=== PATIENT | male | born 1940 | race African-American/Black ===

== ENCOUNTER 2020-04-12 05:19 | Inpatient (IN) | payer OTHER ==
[~2020-04-12] VITALS: Ht 172.7 cm; Wt 74.8 kg
[2020-04-12] MEDS ORDERED: ACETAMINOPHEN 500MG TABLET PO ONE (05:30)
[2020-04-12] MEDS ORDERED: SODIUM CHLORIDE 0.9% 1,000 ML IV ONE (05:30)
[2020-04-12 05:52] LABS: BASOPHILS % 0.2 % (0.0-2.0); EOSINOPHILS % 0.1 % (0.0-5.0); HEMATOCRIT. 35.7 % (42.0-52.0); MEAN CORPUSCULAR HEMOGLOBIN 31.6 pg (28.0-32.0); MEAN CORPUSCULAR VOLUME 94.2 fL (80.0-94.0); MEAN PLATELET VOLUME 7.6 fl (7.4-10.4); MONOCYTES % 3.3 % (2.0-8.0); NEUTROPHILS % 86.4 % (40.0-76.0); PLATELET 194 x1000/uL (130-400); RED BLOOD CELL COUNT 3.79 mill/uL (4.7-6.1); RED CELL DISTRIBUTION WIDTH 14.6 % (11.6-14.6)
[2020-04-12 06:01] LABS: INR 1.1; PROTHROMBIN TIME 11.4 sec (9.6-11.0)
[2020-04-12 06:03] LABS: CHLORIDE 104 mEq/L (98-107)
[2020-04-12] MEDS ORDERED: PIPERACILLIN/TAZ 3.375G PREMIX 50 ML IV ONE (06:45)
[2020-04-12] MEDS ORDERED: VANCOMYCIN 1 G PREMIX 200 ML IV ONE (06:45)
[2020-04-12] MEDS ORDERED: MORPHINE SULFATE 4 MG/ML CPJ (NOT FOR IM USE) IV ONE (06:45)
[2020-04-12] MEDS ORDERED: DEXT 5%/0.45% NACL 1000ML 1,000 ML IV SCH (09:45)
[2020-04-12] MEDS ORDERED: MORPHINE SULFATE 2 MG/ML CPJ (NOT FOR IM USE) IV PRN (09:45)
[2020-04-12] MEDS ORDERED: CLONIDINE 0.1MG TABLET PO PRN (09:45)
[2020-04-12] MEDS ORDERED: ENOXAPARIN 40MG/0.4ML SYR SUBCUT SCH (09:45)
[2020-04-12] MEDS ORDERED: NITROGLYCERIN 0.4MG TABLET SL SL PRN (09:45)
[2020-04-12] MEDS ORDERED: DIPHENHYDRAMINE 50MG/ML VIAL IV PRN (09:45)
[2020-04-12] MEDS ORDERED: ZOLPIDEM TARTRATE 5MG TABLET PO PRN (09:45)
[2020-04-12] MEDS ORDERED: SODIUM CHLORIDE 0.9% 1000ML BAG (SEPSIS BOLUS) IV ONE (09:45)
[2020-04-12] MEDS ORDERED: PIPERACILLIN/TAZ 3.375G PREMIX 50 ML IV SCH (09:45)
[2020-04-12] MEDS ORDERED: MAGNESIUM/ALUMINUM HYDROXIDE/SIMETHICONE 30ML UDC PO PRN (09:45)
[2020-04-12] MEDS ORDERED: DEXTROSE 50% WATER 50ML SYRINGE IV PRN (09:45)
[2020-04-12] MEDS ORDERED: TRAMADOL 50MG TABLET PO PRN (09:45)
[2020-04-12] MEDS ORDERED: ACETAMINOPHEN 325MG TABLET PO PRN ×2 (09:45)
[2020-04-12] MEDS ORDERED: GUAIFENESIN 200MG/10ML SUGAR FREE UDC PO PRN (09:45)
[2020-04-12] MEDS ORDERED: IPRATROPIUM/ALBUTEROL 0.5-3(2.5)MG/3ML NEB NEB PRN (09:45)
[2020-04-12] MEDS ORDERED: ONDANSETRON HCL 4MG/2ML INJ IV PRN (09:45)
[2020-04-12] MEDS ORDERED: DOCUSATE SODIUM 100MG CAPSULE PO PRN (09:45)
[2020-04-12 10:52] LABS: FOLIC ACID (FOLATE) SERUM 17.7 ng/mL (>5.38)
[2020-04-12] MEDS: ENOXAPARIN 30MG/0.3ML SYR SUBCUT SCH (11:30)
[2020-04-12] MEDS: INSULIN LISPRO 100 UNITS/ML SUBCUT SCH ×3 (13:20→21:00)
[2020-04-12] MEDS: BLOOD SUGAR DIAGNOSTIC STRIP TEST SCH ×3 (13:27→21:00)
[2020-04-12] MEDS: PIPERACILLIN/TAZOBACTAM 2.25 G in DEXTROSE 5% WATER 50 ML IV SCH (14:00)
[2020-04-12 16:26] LABS: CREATINE KINASE 541 IU/L (39-308); CREATINE KINASE MB FRACTION 1.2 ng/mL (0.5-3.6)
[2020-04-12 16:40] VITALS: BP 126/63
[2020-04-12] MEDS: CYANOCOBALAMIN 1000MCG/ML VIAL IM SCH (18:05)
[2020-04-12] MEDS ORDERED: LOVA10TA54 MT (18:31)
[2020-04-12] MEDS ORDERED: LISI2.5T47 MT (18:31)
[2020-04-12] MEDS ORDERED: LISI40TA4 MT (19:05)
[2020-04-12] MEDS ORDERED: LOVA40TA73 MT (19:05)
[2020-04-12] MEDS ORDERED: LEVO100T9 MT (19:05)
[2020-04-12 20:00] VITALS: BP 112/65
[2020-04-13] VITALS: BP 103/63
[2020-04-13 01:33] LABS: CREATINE KINASE 581 IU/L (39-308); CREATINE KINASE MB FRACTION 1.2 ng/mL (0.5-3.6)
[2020-04-13] MEDS: PIPERACILLIN/TAZOBACTAM 2.25 G in DEXTROSE 5% WATER 50 ML IV SCH ×3 (01:50→06:06)
[2020-04-13 04:00] VITALS: BP 113/66
[2020-04-13] MEDS ORDERED: BUPIVACAINE HCL/PF 0.5% (5MG/ML) 10ML ONE (06:51)
[2020-04-13] MEDS ORDERED: SKIN ADHESIVE 0.7 GM EA TOP ONE ×2 (06:51→06:52)
[2020-04-13 06:58] LABS: CHLORIDE 110 mEq/L (98-107)
[2020-04-13 07:00] LABS: CLARITY URINE CLEAR (CLEAR); COLOR URINE YELLOW (YELLOW); KETONES URINE TRACE (NEGATIVE); LEUKOCYTE ESTERASE URINE TRACE (NEGATIVE); NITRITE URINE NEGATIVE (NEGATIVE); OCCULT BLOOD URINE 2+ (NEGATIVE); PROTEIN URINE 2+ (NEGATIVE); SPECIFIC GRAVITY URINE 1.017 (1.005-1.030)
[2020-04-13 07:13] LABS: HEMATOCRIT. 31.4 % (42.0-52.0); HEMOGLOBIN. 10.5 g/dL (14.0-18.0); MEAN CORPUSCULAR HEMOGLOBIN 31.8 pg (28.0-32.0); MEAN CORPUSCULAR VOLUME 95.4 fL (80.0-94.0); PLATELET 173 x1000/uL (130-400); RED BLOOD CELL COUNT 3.29 mill/uL (4.7-6.1)
[2020-04-13] MEDS: BLOOD SUGAR DIAGNOSTIC STRIP TEST SCH ×2 (07:20→11:56)
[2020-04-13] MEDS: CYANOCOBALAMIN 1000MCG/ML VIAL IM SCH (08:42)
[2020-04-13] MEDS: INSULIN LISPRO 100 UNITS/ML SUBCUT SCH ×2 (08:42→12:12)
[2020-04-13] MEDS ORDERED: PANTOPRAZOLE SODIUM 40 MG/VIAL IV SCH (09:00)
[2020-04-13] MEDS: ENOXAPARIN 30MG/0.3ML SYR SUBCUT SCH (12:09)
[2020-04-13] MEDS ORDERED: CEFTRIAXONE 1,000 MG in DEXTROSE 5% WATER 50 ML IV SCH (14:00)
[2020-04-13 19:33] LABS: PLATELET ESTIMATE NORMAL
== END 2020-04-13 14:32 | disposition left against medical advice (07) | DRG 871 ==
LOC: EDBD 05:19 → ER 05:19 → 6WST 08:43 → EDBEDREQSVC 08:45 → EDBEDREQ 08:45 → ENRESERV 15:28
PROVIDERS: ADMIT Internal Medicine; ATTEND Internal Medicine
DX: A41.9 Sepsis, unspecified organism (principal); N17.0 Acute kidney failure with tubular necrosis; E43 Unspecified severe protein-calorie malnutrition; E87.1 Hypo-osmolality and hyponatremia; K80.00 Calculus of gallbladder with acute cholecystitis without obstruction; R65.20 Severe sepsis without septic shock; D51.9 Vitamin B12 deficiency anemia, unspecified; Z20.822 Contact with and (suspected) exposure to COVID-19; D63.8 Anemia in other chronic diseases classified elsewhere; D64.9 Anemia, unspecified; E11.65 Type 2 diabetes mellitus with hyperglycemia; E83.51 Hypocalcemia; I10 Essential (primary) hypertension; Z68.25 Body mass index [BMI] 25.0-25.9, adult; Z79.899 Other long term (current) drug therapy; B96.20 Unspecified Escherichia coli [E. coli] as the cause of diseases classified elsewhere
CPT/HCPCS: 36415; 71045; 74176; 76705; 78227; 80053; 80061; 81003; 82550; 82553; 82607; 82746; 82962; 83036; 83540; 83550; 83605; 83735; 84100; 84145; 84484; 85025; 87077; 87186; 87426; 93005; 93970; 99291; A9537; C9113; J0696; J1650; J1815; J2543; J3370; J3420; J3490; J7030; J7060